=== PATIENT | female | born 1985 ===

== ENCOUNTER 2019-04-04 09:45 | Inpatient (IN) | payer OTHER ==
[~2019-04-04] VITALS: Ht 157.5 cm; Wt 2.7 kg
[2019-04-04] MEDS ORDERED: PRENATABS RX T1 EACH PO (11:53)
[2019-04-04] MEDS ORDERED: ASPIR 8181 MG (12:59)
[2019-04-11] MEDS ORDERED: MOTRIN IB200 MG PO (11:42)
[2019-04-11] MEDS ORDERED: COLACE100 MG PO (11:42)
[2019-04-11] MEDS ORDERED: GAS-X125 MG PO (11:43)
== END 2019-04-11 14:17 | disposition home or self-care (01) | DRG 785 ==
LOC: SURG-SUITE 04-08 05:52 → O/R 04-08 05:52 → LDR 04-08 09:45 → OB/GYN 04-08 13:08 → SURG-SUITE 04-08 13:25
PROVIDERS: ADMIT Specialist
PROC: 0UL70ZZ Occlusion of Bilateral Fallopian Tubes, Open Approach (ICD-10-PCS; 2019-04-08)
PROC: 4A1HXCZ Monitoring of Products of Conception, Cardiac Rate, External Approach (ICD-10-PCS; 2019-04-08)
PROC: 10D00Z1 Extraction of Products of Conception, Low, Open Approach (ICD-10-PCS; principal; 2019-04-08 08:30)
DX: O82 Encounter for cesarean delivery without indication (principal); Z3A.39 39 weeks gestation of pregnancy; Z37.0 Single live birth; Z30.2 Encounter for sterilization